=== PATIENT | male | born 1985 ===

== ENCOUNTER 2019-07-17 20:57 | Emergency (ER) | payer SELFPAY ==
[2019-07-17] MEDS ORDERED: IBUPROFEN 400 MG TAB ONE (21:58)
[2019-07-17] MEDS ORDERED: LIDOCAINE 1% W/EPI 1:100,000 MDV 50 ML VIAL ONE (22:19)
--- NOTE | 2019-07-17 22:43 | EDPHYS ---
Physician Documentation [facility] Name: Bradly Dumont Age: 34 yrs Sex: Male : 1985 Arrival Date: 07/17/2019 Time: 21:01 Bed 12 Private MD: ED Physician Richard Pritchett HPI: 07/16 21:55 This 34 yrs old Male presents to ER via Ambulatory with complaints of Laceration To cp Hand, Hand Injury. Historical: - Allergies: 21:16 No Known Allergies; bb - Immunization history:: Adult Immunizations up to date, Last tetanus immunization: < 5 years ago. - Social history:: Smoking status: unknown. ROS: 21:55 Constitutional: Negative for body aches, chills, fever. cp 21:55 Cardiovascular: Negative for chest pain, palpitations. 21:55 Respiratory: Negative for cough, shortness of breath, wheezing. 21:55 Abdomen/GI: Negative for abdominal pain, nausea, vomiting, and diarrhea. 21:55 MS/extremity: Positive for injury or acute deformity, laceration, pain, swelling, tenderness, of the dorsum of right hand, Negative for paresthesias. 21:55 All other systems are negative. Vital Signs: 21:14 BP 121 / 86; Pulse 74; Resp 16 S; Temp 98.3(TE); Pulse Ox 100% on R/A; Weight 73.48 kg bb (R); Height 6 ft. 1 in. (185.42 cm) (R); Pain 7/10; 21:14 Body Mass Index 21.37 (73.48 kg, 185.42 cm) bb MDM: 21:30 Patient medically screened. cp 07/16 21:36 Order name: XRAY Hand RIGHT 3 View cp Administered Medications: 21:56 Not Given (Patient Refused): Tetanus-Diphtheria Toxoid Adult 0.5 ml IM once bb 21:56 Drug: Ibuprofen 800 mg Route: PO; bb 22:48 Follow up: Response: No adverse reaction bb 22:30 Drug: Lidocaine-Epinephrine -1%: (1:100,000) 10 ml {Note: by Ignacio GENTILE to affected bb area.} Volume: 20 ml; Route: Infiltration; 22:48 Follow up: Response: No adverse reaction bb Disposition: 07/17/19 22:42 Discharged to Home. Impression: Laceration without foreign body of right hand. - Condition is Stable. - Discharge Instructions: Laceration Care, Adult. - Medication Reconciliation Form, Thank You Letter, Antibiotic Education, Prescription Opioid Use form. - Follow up: Private Physician; When: 7 - 10 days; Reason: Staple/Suture removal. - Problem is new. - Symptoms have improved. Signatures: Dispatcher [employer] Keisha Lux RN RN Ignacio Roach PA PA cp Corrections: (The following items were deleted from the chart) 23:02 22:42 07/17/2019 22:42 Discharged to Home. Impression: Laceration without foreign body bb of right hand. Condition is Stable. Forms are Medication Reconciliation Form, Thank You Letter, Antibiotic Education, Prescription Opioid Use. Follow up: Private Physician; When: 7 - 10 days; Reason: Staple/Suture removal. Problem is new. Symptoms have improved. cp
--- NOTE | 2019-07-17 22:43 | ER ---
Nurse's Notes [facility] Name: Bradly Dumont Age: 34 yrs Sex: Male : 1985 Arrival Date: 07/17/2019 Time: 21:01 Bed 12 Private MD: Diagnosis: Laceration without foreign body of right hand Presentation: 07/16 21:14 Chief complaint: Patient states: he hurt his hand working on his car tonight has small bb laceration to right dorsal area. Coronavirus screen: Proceed with normal triage. Ebola Screen: No symptoms or risks identified at this time. Complicating Factors: There are no complicating factors for this patient. Initial Sepsis Screen: Does the patient meet any 2 criteria? No. Patient's initial sepsis screen is negative. Does the patient have a suspected source of infection? No. Patient's initial sepsis screen is negative. Risk Assessment: Do you want to hurt yourself or someone else? Patient reports no desire to harm self or others. Onset of symptoms was July 17, 2019. 21:14 Method Of Arrival: Ambulatory 21:14 Acuity: ENRIQUE 4 bb Triage Assessment: 21:16 General: Appears in no apparent distress. slender, Behavior is calm, cooperative. Pain: bb Complains of pain in dorsum of right hand Pain currently is 7 out of 10 on a pain scale. Neuro: Level of Consciousness is awake, alert, obeys commands, Oriented to person, place, time, situation. Cardiovascular: No deficits noted. Respiratory: Respiratory effort is even, unlabored, Respiratory pattern is regular. GI: No signs and/or symptoms were reported involving the gastrointestinal system. Derm: Wound noted right hand. Musculoskeletal: Circulation, motion, and sensation intact. Injury Description: Laceration sustained to right hand is bleeding no active bleeding noted. Historical: - Allergies: 21:16 No Known Allergies; bb - Immunization history:: Adult Immunizations up to date, Last tetanus immunization: < 5 years ago. - Social history:: Smoking status: unknown. Screenin:18 Abuse screen: Denies threats or abuse. Nutritional screening: No deficits noted. bb Tuberculosis screening: No symptoms or risk factors identified. Fall Risk None identified. Assessment: 21:18 Reassessment: No changes from previously documented assessment. see triage assessment. bb Injury Description: Laceration sustained to dorsum of right hand is jagged. 23:00 Reassessment: Patient is alert, oriented x 3, equal unlabored respirations, skin bb warm/dry/pink. sutures intact, antibiotic ointment applied, non-adherent bandage, covered with kerlix, pt verbalized understanding of and agrees to plan of care discharge instructions given pt ambulated with steady gait to exit. Vital Signs: 21:14 BP 121 / 86; Pulse 74; Resp 16 S; Temp 98.3(TE); Pulse Ox 100% on R/A; Weight 73.48 kg bb (R); Height 6 ft. 1 in. (185.42 cm) (R); Pain 7/10; 21:14 Body Mass Index 21.37 (73.48 kg, 185.42 cm) bb ED Course: 21:01 Patient arrived in ED. ag3 21:16 Triage completed. bb 21:16 Arm band placed on Patient placed in an exam room, on a stretcher, on pulse oximetry. bb 21:18 Patient has correct armband on for positive identification. Bed in low position. Call bb light in reach. Side rails up X 1. 21:25 Ignacio Cota PA is PHCP. cp 21:25 Richard Pritchett MD is Attending Physician. cp 21:32 Keisha Sy, RN is Primary Nurse. bb 21:59 XRAY Hand RIGHT 3 View In Process Unspecified. EDMS 23:01 Assist provider with laceration repair on dorsum of right hand using sutures. Set up bb tray. Performed by Ignacio GENTILE Dressed with 4X4s, Kerlix, Neosporin, Patient tolerated well. Patient did not have IV access during this emergency room visit. Administered Medications: 21:56 Not Given (Patient Refused): Tetanus-Diphtheria Toxoid Adult 0.5 ml IM once bb 21:56 Drug: Ibuprofen 800 mg Route: PO; bb 22:48 Follow up: Response: No adverse reaction bb 22:30 Drug: Lidocaine-Epinephrine -1%: (1:100,000) 10 ml {Note: by Ignacio GENTILE to affected bb area.} Volume: 20 ml; Route: Infiltration; 22:48 Follow up: Response: No adverse reaction bb Outcome: 22:42 Discharge ordered by . cp 23:01 Discharged to home ambulatory. bb 23:01 Condition: stable 23:01 Discharge instructions given to patient, Instructed on discharge instructions, follow up and referral plans. wound care, Demonstrated understanding of instructions, follow-up care, wound care. 23:02 Patient left the ED. bb Signatures: Dispatcher [employer] Keisha Lux, RN RN bb Ignacio Cota PA PA cp Gomez, Alice ag3
[2019-07-17 23:09] VITALS: BP 121/86; TEMP 98.3; O2SAT 100
--- NOTE | 2019-07-18 10:53 | RAD REPORT ---
EXAM DESCRIPTION: RAD - Hand Right 3 View - 07/17/2019 10:05 pm CLINICAL HISTORY: PAIN COMPARISON: No comparisons FINDINGS: Soft tissue swelling is seen along the dorsal aspect of the hand. No fracture, dislocation or radiopaque foreign body.
== END 2019-07-17 23:02 | disposition home or self-care (01) ==
LOC: ER 20:57
DX: S61.411A Laceration without foreign body of right hand, initial encounter (principal); W45.8XXA Other foreign body or object entering through skin, initial encounter; Y93.89 Activity, other specified; Y92.9 Unspecified place or not applicable
CPT/HCPCS: 99284